=== PATIENT | male | born 1985 | race Caucasian/White ===

== ENCOUNTER 2022-02-20 08:03 | Inpatient (IN) ==
[2022-02-20] MEDS ORDERED: 0.9 % Sodium Chloride 1,000 ML IVC ONE ×2 (08:24→10:40)
[2022-02-20 08:52] LABS: Basophils # 0.1 K/mcL (0.0-0.2); Basophils % 0.7 %; Eosinophils # 0.2 K/mcL (0.0-0.6); Eosinophils % 1.8 %; Hemoglobin 16.7 g/dL (12.9-16.9); Immature Granulocytes % 1.1 % (0-4); Lymphocytes # 1.4 K/mcL (0.6-4.6); Lymphocytes % 14.6 %; Mean Corpuscular HGB Conc 34.8 g/dL (31.6-35.5); Mean Corpuscular Hemoglobin 29.7 pg (28.0-33.3); Mean Corpuscular Volume 85.4 fL (83.0-100.0); Mean Platelet Volume 9.3 fL (9.4-12.4); Monocytes # 0.5 K/mcL (0.0-1.3); Monocytes % 5.5 %; Neutrophils # 7.4 K/mcL (1.6-8.9); Platelet Count 325 K/mcL (140-400); Red Blood Count 5.62 M/mcL (4.19-5.50); Red Cell Distribution Width 13.4 % (11.5-14.5); Segmented Neutrophils % 76.3 %; White Blood Count 9.8 K/mcL (4.3-11.1)
[2022-02-20 08:54] LABS: Bilirubin,Urine Negative (Negative); Blood,Urine Negative (Negative); Clarity,Urine Clear (Clear); Color,Urine Light-Yellow (Yellow); Glucose,Urine (UA) Normal (Normal); Ketones,Urine Negative (Negative); Leukocyte Esterase,Urine Negative (Negative); Nitrite,Urine Negative (Negative); PH,Urine 5.5 pH Units (5.0-8.0); Protein,Urine Negative (Neg-Trace); Specific Gravity,Urine 1.009 (1.010-1.025); Urobilinogen,Urine Normal (Normal)
[2022-02-20 09:13] LABS: Albumin 4.2 g/dL (3.5-5.7); Albumin/Globulin Ratio 1.1 (1.1-2.2); Bilirubin,Direct 0.2 mg/dL (0.0-0.2); Bilirubin,Indirect 0.7 mg/dL (0.0-1.0); Bilirubin,Total 0.9 mg/dL (0.3-1.0); Calcium 8.1 mg/dL (8.6-10.3); Globulin 3.9 g/dL (2.4-3.5); Potassium 3.2 mEq/L (3.5-5.1); Total Protein 8.1 g/dL (6.4-8.9)
[2022-02-20] MEDS ORDERED: Ondansetron 4 MG/2 ML VIAL IVP PRN (12:20)
[2022-02-20] MEDS ORDERED: Naloxone 0.4 MG/ML INJ IVP PRN (12:20)
[2022-02-20] MEDS ORDERED: Acetaminophen 325 MG TABLET PO PRN (12:20)
[2022-02-20] MEDS ORDERED: 0.9 % Sodium Chloride 1,000 ML IVC SCH (12:30)
[2022-02-20] MEDS: hydrOXYzine pamoate 25 MG CAPSULE PO PRN ×2 (14:09→22:04)
[2022-02-20 14:51] LABS: Calcium 7.8 mg/dL (8.6-10.3); Potassium 3.2 mEq/L (3.5-5.1); Uric Acid 12.9 mg/dL (2.3-7.6)
[2022-02-20] MEDS: Sodium Bicarbonate 75 MEQ in 0.45 % Sodium Chloride 1,000 ML IVC SCH ×3 (14:51→22:03)
[2022-02-20] MEDS: *HR* Heparin 5,000 UNIT/ML VIAL SQ SCH (18:48)
[2022-02-20] MEDS: carvediloL 6.25 MG TABLET PO SCH (18:52)
[2022-02-20] MEDS: Melatonin 3 MG TABLET PO PRN (22:04)
[2022-02-21 04:26] LABS: Calcium 7.2 mg/dL (8.6-10.3)
[2022-02-21] MEDS: Sodium Bicarbonate 75 MEQ in 0.45 % Sodium Chloride 1,000 ML IVC SCH ×3 (05:29→23:26)
[2022-02-21] MEDS: *HR* Heparin 5,000 UNIT/ML VIAL SQ SCH ×2 (05:30→16:39)
[2022-02-21] MEDS: hydrOXYzine pamoate 25 MG CAPSULE PO PRN ×3 (05:47→23:26)
[2022-02-21] MEDS: carvediloL 6.25 MG TABLET PO SCH ×2 (08:22→16:39)
[2022-02-21 09:29] LABS: Sodium, Urine 35.2 mEq/L
[2022-02-21] MEDS ORDERED: Potassium Chloride Elixir 20 MEQ/15 ML UDC PO ONE (11:00)
[2022-02-21] MEDS: Melatonin 3 MG TABLET PO PRN (23:25)
[2022-02-22] MEDS: *HR* Heparin 5,000 UNIT/ML VIAL SQ SCH ×2 (05:47→21:28)
[2022-02-22] MEDS: Sodium Bicarbonate 75 MEQ in 0.45 % Sodium Chloride 1,000 ML IVC SCH ×2 (07:12→08:36)
[2022-02-22 07:29] LABS: Calcium 7.1 mg/dL (8.6-10.3); Magnesium 1.5 mg/dL (1.6-2.6); Phosphorous 4.1 mg/dL (2.7-4.5)
[2022-02-22] MEDS ORDERED: Calcium Gluconate 1gm/50mL 1 GM/50 ML BAG IVPB ONE (07:31)
[2022-02-22] MEDS: Potassium Chloride Elixir 20 MEQ/15 ML UDC PO SCH ×2 (08:28→12:16)
[2022-02-22] MEDS: carvediloL 6.25 MG TABLET PO SCH ×2 (08:29→16:41)
[2022-02-22] MEDS: hydrOXYzine pamoate 25 MG CAPSULE PO PRN ×2 (09:24→21:27)
[2022-02-22 11:19] LABS: Phosphorous 4.8 mg/dL (2.7-4.5)
[2022-02-22] MEDS: 0.9 % Sodium Chloride 1,000 ML IVC SCH (16:41)
[2022-02-22] MEDS: Melatonin 3 MG TABLET PO PRN (21:28)
[2022-02-23] MEDS: 0.9 % Sodium Chloride 1,000 ML IVC SCH (02:41)
[2022-02-23 04:04] LABS: Calcium 7.5 mg/dL (8.6-10.3); Potassium 3.1 mEq/L (3.5-5.1)
[2022-02-23 04:40] LABS: Magnesium 1.9 mg/dL (1.6-2.6); Phosphorous 3.8 mg/dL (2.7-4.5)
[2022-02-23] MEDS: *HR* Heparin 5,000 UNIT/ML VIAL SQ SCH (06:18)
[2022-02-23] MEDS ORDERED: Calcium Gluconate 1gm/50mL 1 GM/50 ML BAG IVPB ONE (07:30)
[2022-02-23] MEDS: carvediloL 6.25 MG TABLET PO SCH (07:49)
[2022-02-23] MEDS ORDERED: DESVENLAFAXINE SUCCINATE PO SCH (09:00)
[2022-02-23 11:18] VITALS: BP 125/90; PULSE 75; TEMP 97.6; O2SAT 96
== END 2022-02-23 11:44 | disposition home or self-care (01) | DRG 683 ==
LOC: EMEROOARM 08:03 → 2ANU 08:03
PROVIDERS: ADMIT Internal Medicine; ATTEND Internal Medicine